=== PATIENT | female | born 1980 | race Caucasian/White ===

== ENCOUNTER 2018-03-17 | Emergency (ER) | payer MEDICAID | END 2018-03-17 19:39 | disposition home or self-care (01) ==

== ENCOUNTER → 2018-11-02 | Outpatient (CLI) | payer MEDICAID | LOC: FIMAGING 15:21 | PROVIDERS: ATTEND Physician Assistant Medical | DX: R51 Headache (principal); Z87.828 Personal history of other (healed) physical injury and trauma | CPT/HCPCS: 70551-PN ==

== ENCOUNTER → 2018-11-16 | Outpatient (CLI) | payer MEDICAID ==
[~2018-11-16] MED LIST: GADOBUTROL 10 ML VIAL IVP ONE
== END ==
LOC: FIMAGING 10:39
PROVIDERS: ATTEND Physician Assistant Medical
DX: R90.82 White matter disease, unspecified (principal); R51 Headache; Z87.828 Personal history of other (healed) physical injury and trauma
CPT/HCPCS: A9585